=== PATIENT | female | born 2000 | race Caucasian/White ===

== ENCOUNTER 2024-08-05 11:03 | Emergency (ER) | payer MEDICAID, SELFPAY ==
[2024-08-05 11:22] VITALS: BP 105/59; PULSE 106; RESP 18; TEMP 37; O2SAT 98; BMI 27.1
--- NOTE | 2024-08-05 11:24 | ED_ITS ---
HPI - General Adult General Chief complaint: Upper Respiratory Symptoms Stated complaint: Sore throat, headache Time Seen by Provider: 08/05/24 13:47 Source: patient Mode of arrival: ambulatory Limitations: no limitations History of Present Illness ED Provider: MARY JO FLEMING PA-C HPI narrative: 24 year old female with no significant pmhx presents to the ED today for evaluation of sore throat, headache, and subjective fevers x24 hours. Reports her son at home recently had strep throat. No other sick contacts. Denies dizziness, vision changes, dysphagia, neck pain, chest pain, SOB. Vaccinations UTD. Related Data Previous Rx's ?Medication ?Instructions ?Recorded benzocaine 15 mg-menthol 2.6 mg 1 nancy mucous membrane Q2-4H PRN 08/05/24 lozenges (Cepacol Sore Throat sore throat #16 ea (benzocaine-menthol)) penicillin V potassium 500 mg 500 mg PO BID 10 days #20 tabs 08/05/24 tablet prednisone 20 mg tablet 40 mg (2 x 20 mg) PO DAILY 5 days 08/05/24 #10 tabs Allergies Allergy/AdvReac Type Severity Reaction Status Date / Time No Known Allergies Allergy Verified 08/05/24 11:25 Review of Systems Review of Systems: Constitutional: No fever, chills, fatigue, night sweats, weight changes ENT/Mouth: No ear pain, hearing loss, nasal congestion, sinus pain, rhinorrhea, +sore throat, +odynophagia, No dysphagia Eyes: No eye pain, swelling, redness, vision changes, discharge Cardio: No chest pain, palpitations, LOPEZ, orthopnea, peripheral edema Pulm: No SOB, cough, sputum, wheezing, dyspnea, hemoptysis GI: No nausea, vomiting, hematemesis, abdominal pain, diarrhea, constipation, hematochezia, melena : No irregular bleeding, dysuria, frequency, urgency, hesitancy, hematuria, flank pain MSK: No back pain, neck pain, joint pain, myalgias Skin: No lesions, rashes Neuro: No weakness, numbness, paresthesias, LOC, dizziness, headache All other systems reviewed and are negative. [facility] Past Medical History Attestation statement: The following information was validated with the patient. Source: old records reviewed and nursing notes reviewed Social History Social History Advance Directives: No Advance Directives Information Provided: Yes Physical Exam ED Vital Signs: Vital Signs - 24 hr 08/05/24 11:22 Temperature 98.6 F Pulse Rate 106 H Respiratory Rate 18 Blood Pressure 105/59 L Pulse Oximetry 98 Oxygen Delivery Method Room Air BMI result Body Mass Index 27.1 vital signs stable General: Well appearing, in no acute distress. Skin: Warm, dry, intact. No rashes or lesions. Head: Normocephalic, atraumatic. EENT: Hearing is intact b/l. Conjunctiva clear. PERRLA. EOM intact. Moist mucous membranes.? Posterior oropharynx erythematous with tonsillar swelling. Bilateral tonsillar exudates. Uvula midline. Controlling secretions and complete sentences. Neck: Supple without LAD. Cardiac: Chest wall symmetric. RRR Lungs: Airway patent. Normal respiratory effort without accessory muscle use. CTA bilaterally Back: No midline spinous or paraspinal tenderness. No step off deformity. Ext: Upper and lower extremities atraumatic, without tenderness, deformity, swelling or erythema. Full ROM throughout. Neuro: AOx3. Normal speech. Ambulating with steady gait. Psych: Appropriate mood and affect. Responds appropriately to questions. Course Course Course Narrative: This is a rapid medical exam performed by Trav Acosta NP: Additional HPI, ROS, PE not included below will be deferred to primary provider. Patient is a 24-year-old female presenting with complaint of sore throat, headache, subjective fever. Son sick with similar symptoms. Plan: strep and viral swabs Reevaluation(s) Reevaluation #1: 0290 -- patient tested positive for strep throat. Negative for COVID, flu, RSV. Penicillin sent to pharmacy for treatment. I have also send Cepacol throat lozenges and prednisone for swelling. Patient has remained stable throughout ED visit today. Discussed worrisome signs and symptoms and when to return to the ED. All questions answered at this time. Patient is agreeable with disposition and stable for discharge. Medical Decision Making Medical Decision Making MDM Narrative: 24 year old female with no significant pmhx presents to the ED today for evaluation of sore throat, headache, and subjective fevers x24 hours. Patient tachycardic to 106. Afebrile. She is nontoxic appearing in no acute distress. Posterior oropharynx erythematous with tonsillar swelling. Bilateral tonsillar exudates. Uvula midline. Controlling secretions and complete sentences. airway patent, lungs clear. no LAD. Differential diagnosis includes strep throat, viral syndrome. 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 Plan for viral and strep swabs, re-evaluation. Differential Diagnosis Differential Diagnoses: The differential diagnosis associated with the presentation includes as above. Admission/Observation Not indicated Lab Data MDM Lab Attestation statement: I reviewed the patient's lab results. as above Labs: Lab Results 08/05/24 Range/Units 12:11 Influenza Type A (PCR) NEGATIVE (Negative) Influenza Type B (PCR) NEGATIVE (Negative) RSV RNA Qual (PCR) NEGATIVE (Negative) SARS-CoV-2 RNA (RT-PCR) NEGATIVE (Negative) S. pyogenes GrpA CASH Positive A (Negative) External Record Review External record reviewed: Inpatient record Prescription Management I considered prescription management with: Pain Medication and Antibiotic (Penicillin) Social Determinants Patient?s care significantly limited by Social Determinants of Health including: Other Social Determinant of Health Critical Care Time Critical Care Time Critical Care Time: No Discharge Plan Discharge Clinical Impression: Acute streptococcal pharyngitis Patient Disposition: Home, Self-Care Instructions: Strep Throat (ED) Additional Instructions: You were seen in the ED today for evaluation of sore throat. You tested positive for strep throat. Penicillin is an antibiotic that has been sent to your pharmacy. Take this twice daily for the next 10 days to treat strep throat. Do not stop taking these antibiotics early or miss any doses as this may cause infection to return or worsen. Cepacol throat lozenges have been sent to your pharmacy to help with throat pain. Prednisone is a steroid that has been sent to your pharmacy for you to take over the next 5 days. You may also purchase [id number] chloraseptic spray to numb your throat. Take Tylenol and ibuprofen as needed for body aches or fevers. Make sure to change your toothbrush as this contains bacteria. Strep throat is contagious. If anyone else in your household is exhibiting symptoms, please advise them to come to the ED, urgent care, or to see their primary care provider. Follow up with your primary care provider this week. Return to the Emergency Department if you experience worsening or uncontrolled pain, tongue swelling, difficulty swallowing, change in your voice, difficulty breathing, fevers 100.4?F or greater, recurrent vomiting, development of a rash, or any other concerning symptoms. In the case of emergency, call 911.? Prescriptions: New penicillin V potassium 500 mg tablet 500 mg PO BID 10 Days Qty: 20 0RF prednisone 20 mg tablet 40 mg PO DAILY 5 Days Qty: 10 0RF Cepacol Sore Throat (warner-men) 15-2.6 mg lozenge 1 nancy mucous membrane Q2-4H PRN (Reason: sore throat) Qty: 16 0RF Interventions: ED Discharge Assessment Last Done: 08/05/24 14:20 Discharge Date/Time: 08/05/24 14:21 Print Language: Belarusian
[2024-08-05 12:36] LABS: IDNOW Serial# 08D9AD1C; Strep A Nucleic Acid Positive (Negative)
[2024-08-05 13:13] LABS: Influenza A PCR NEGATIVE (Negative); Influenza B PCR NEGATIVE (Negative); Resp Syncy Virus RNA Qual PCR NEGATIVE (Negative); SARS COV2 PCR INHOUSE NEGATIVE (Negative)
[2024-08-05 14:20] VITALS: BP 105/59; PULSE 106; RESP 18; TEMP 37; O2SAT 98
== END 2024-08-05 14:21 | disposition home or self-care (01) ==
PROVIDERS: Registered Nurse Emergency; Emergency Provider Emergency Medicine
DX: J02.0 Streptococcal pharyngitis (principal); R51.9 Headache, unspecified; R50.9 Fever, unspecified; Z03.818 Encounter for observation for suspected exposure to other biological agents ruled out
CPT/HCPCS: 0241U; 87651; 99282; 99283

== ENCOUNTER 2024-11-24 09:16 | Emergency (ER) | payer MEDICAID, SELFPAY ==
--- NOTE | ~2024-11-24 | XR_ITS ---
EXAMINATION: XR CHEST 2 VIEWS HISTORY: dyspnea COMPARISON: There are no prior studies for comparison. FINDINGS: PA and lateral views of the chest are submitted. There is a small patchy opacity in the right middle lobe, consistent with pneumonia. The left lung is clear. There is no pleural effusion, pneumothorax, or pulmonary vascular congestion. The heart is normal in size. The bones are intact. XR/XR chest 2V IMPRESSION: Right middle lobe pneumonia. Electronically signed by: Bassem Lim MD 11/24/2024 10:46 AM EDT
[2024-11-24 09:19] VITALS: BP 101/65; PULSE 112; RESP 16; TEMP 37.7; O2SAT 97; BMI 26.5
[2024-11-24 09:58] LABS: IDNOW Serial# 58CA691E
[2024-11-24 09:59] LABS: Strep A Nucleic Acid Positive (Negative)
[2024-11-24 10:24] LABS: Influenza A PCR NEGATIVE (Negative); Influenza B PCR NEGATIVE (Negative); Resp Syncy Virus RNA Qual PCR NEGATIVE (Negative); SARS COV2 PCR INHOUSE NEGATIVE (Negative)
--- NOTE | 2024-11-24 10:34 | ECG_ITS ---
Test Reason : dyspnea Blood Pressure : */* mmHG Vent. Rate : 83 BPM Atrial Rate : 83 BPM P-R Int : 168 ms QRS Dur : 86 ms QT Int : 352 ms P-R-T Axes : 35 -7 9 degrees QTcB Int : 413 ms Normal sinus rhythm Normal ECG No previous ECGs available Referred By: Anny Copeland Electronically Signed By: Cordell Castañeda
--- NOTE | 2024-11-24 10:38 | ED_ITS ---
HPI - URI/Sore Throat General Chief Complaint: Upper Respiratory Symptoms Stated Complaint: strep Time Seen by Provider: 11/24/24 10:29 Source: patient and old records reviewed Mode of arrival: ambulatory Limitations: no limitations History of Present Illness ED Provider: MAMTA KELLY Narrative: 24 yo female with no sig PMH who has been sick for two days after exposure from son who has strep. She notes sore throat, headaches, chills. Starting yesterday she also c/o feeling like her chest was tight. She feels LOPEZ and it feels tighter when she takes a deep breath. She is not a smoker and has never had asthma. She denies travel, OCP use. She has never had this before. She has not taken any OTC medications for it yet. MD elicited complaint: sore throat and other (LOPEZ) Onset (ago): day(s) (2) Consistency: intermittent Severity: moderate Description of mucous: clear Exacerbating factors: swallowing and other (exertion) Relieving factors: nothing Context: sick contacts Associated symptoms: chills, voice changes, headache, sore throat, chest pain and shortness of breath Treatments prior to arrival: none Related Data Previous Rx's ?Medication ?Instructions ?Recorded benzocaine 15 mg-menthol 2.6 mg 1 nancy mucous membrane Q2-4H PRN 08/05/24 lozenges (Cepacol Sore Throat sore throat #16 ea (benzocaine-menthol)) penicillin V potassium 500 mg 500 mg PO BID 10 days #20 tabs 08/05/24 tablet prednisone 20 mg tablet 40 mg (2 x 20 mg) PO DAILY 5 days 08/05/24 #10 tabs amoxicillin 875 mg-potassium 1 tab PO BID 10 days #20 tabs 11/24/24 clavulanate 125 mg tablet azithromycin 250 mg tablet See Rx Instructions PO .COMPLEX #6 11/24/24 tabs ondansetron 4 mg disintegrating 4 mg PO Q8H PRN nausea and 11/24/24 tablet vomiting #20 tabs Allergies Allergy/AdvReac Type Severity Reaction Status Date / Time No Known Allergies Allergy Verified 11/24/24 09:22 Review of Systems 2 Review of Systems: Constitutional :pos Fever, pos Chills ENT/Mouth : pos sore throat, No Rhinorrhea Eyes: No Eye Pain, No Swelling Cardiovascular : pos Chest Pain, pos SOB, pos Dyspnea on Exertion, No Orthopnea, No Edema, No Palpitations Respiratory : No Cough, No Sputum Gastrointestinal : no Nausea, No Vomiting, No Diarrhea, No abdominal Pain, No Hematochezia, No Melena Genitourinary : No Dysuria, No Urinary Frequency Musculoskeletal : No joint pain, No Myalgias, No Joint Swelling Skin : No Skin Lesions, No rash All other systems reviewed and are negative [facility] Past Medical History Attestation statement: The following information was validated with the patient. Source: old records reviewed Medical History (Updated 11/24/24 @ 12:10 by Anny Copeland DO) No pertinent past medical history Social History Social History (Updated 11/24/24 @ 11:09 by Anny Copeland DO) Patient Tobacco Use Status: Never used Tobacco Smoked in Last 30 Days: No Advance Directives: No Advance Directives Information Provided: Yes Patient : No Physical Exam 2 Vital Signs: Vital Signs: Last Vital Signs Temp 99.8 F 11/24/24 09:19 Pulse 112 H 11/24/24 09:19 Resp 16 11/24/24 09:19 BP 101/65 11/24/24 09:19 Pulse Ox 97 11/24/24 09:19 O2 Del Method Room Air 11/24/24 09:19 BMI result Body Mass Index 26.5 Appearance: Alert. Oriented X3. No acute distress. Eyes: Pupils equal, round and reactive to light. ENT: Pharynx moderate swelling uvula is midline, exudates noted, voice normal, no drooling, no submandibular swelling or neck mass, erythema moderate on tonsils Neck: Normal inspection. Neck supple. CVS: Normal heart rate and rhythm. Pulses normal. Respiratory: No respiratory distress. Breath sounds normal. Abdomen: Soft and nontender. Skin: Skin warm and dry. Normal skin color. Normal skin turgor. Extremities: No lower extremity edema. No calf ttp Neuro: Oriented X 3. No motor deficit. No sensory deficit. CN2-12 intact Medications Administered Discontinued Medications Generic Name Dose Route Start Last Admin Trade Name Freq PRN Reason Stop Dose Admin Amoxicillin 500 mg 11/24/24 10:34 11/24/24 10:56 Amoxicillin 500 Mg Capsule PO 11/24/24 10:35 500 mg ONCE ONE Administration Dexamethasone Sodium Phosphate 8 mg 11/24/24 10:34 11/24/24 10:56 Dexamethasone Sod Phosphate 4 Mg/Ml Vial PO 11/24/24 10:35 8 mg ONCE ONE Administration Ibuprofen 600 mg 11/24/24 10:34 11/24/24 10:56 Ibuprofen Oral Susp 200 Mg/10 Ml Oral.Susp PO 11/24/24 10:35 600 mg ONCE ONE Administration Medical Decision Making Medical Decision Making 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 She has no resp distress but reports she has LOPEZ and chest tightness she is not wheezing on exam at this time given the tachycardia and clear lungs I am going to obtain labs, EKG, troponin, CXR. I did order ddimer for low probability PE. Will also obtain bedside ECHO for effusion. She was only sick for 24 hours then developed LOPEZ/chest tightness - other than her son being ill she has no other risk factors. Differential Diagnosis Differential Diagnoses: The differential diagnosis associated with the presentation includes URI, viral syndrome, pneumonia, VTE low probability, effusion Admission/Observation Consideration of admission/observation: Escalation of care including admission/observation considered negative ECHO, trop, EKG, ddimer under threshold Lab Data [facility] Lab Attestation statement: I reviewed the patient's lab results. 11/24/24 11:08 11/24/24 11:08 Labs: Lab Results 11/24/24 11/24/24 Range/Units 09:39 11:08 WBC 16.0 H (4.8-10.8) X10*3/uL RBC 4.19 L (4.20-5.50) X10*6/uL Hgb 11.0 L (12.0-16.0) g/dl Hct 34.6 L (37.0-47.0) % MCV 82.6 (80.0-98.0) fL MCH 26.3 L (27.0-33.0) pg MCHC 31.8 (31.0-35.0) g/dl RDW 14.4 (11.0-16.0) % Plt Count 226 (160-400) X10*3/uL MPV 11.4 (9.4-12.3) fL Immature Gran % (Auto) 0.4 (0.0-0.4) % Neut % (Auto) 89.2 H (45-73) % Lymph % (Auto) 4.1 L (20-40) % Sawyer % (Auto) 5.1 (2-11) % Eos % (Auto) 0.9 (0-4) % Baso % (Auto) 0.3 (0-2) % Lymph # (Auto) 0.7 L (1.2-4.9) X10*3/uL Sawyer # (Auto) 0.8 (0.1-1.2) X10*3/uL Eos # (Auto) 0.1 (0.0-0.4) X10*3/uL Baso # (Auto) 0.1 (0.0-0.2) X10*3/uL Abs Immat Gran (auto) 0.06 H (0.00-0.03) X10*3/uL Absolute Neuts (auto) 14.3 H (2.0-8.3) x10*3/uL Absolute Nucleated RBC 0.000 (0.0-0.012) X10*3/uL Nucleated RBC % (auto) 0.0 (0.0-0.2) /100WBC D-Dimer High Sensitivty 228 NG/ML Sodium 140 (135-145) mmol/L Potassium 3.6 (3.3-5.1) mmol/L Chloride 108 (96-108) mmol/L Carbon Dioxide 25 (22-29) mmol/L Anion Gap 11 L (12-20) BUN 11 (9-16) mg/dL Creatinine 0.74 (0.5-1.4) mg/dL Estim Creat Clear Calc 118.8 Estimated GFR > 60 Random Glucose 105 (60-115) mg/dL Calcium 9.0 (8.4-10.2) mg/dL Troponin I High Sens < 2.7 (<3.5-17.0) ng/L Beta HCG, Quant < 2 mIU/mL Influenza Type A (PCR) NEGATIVE (Negative) Influenza Type B (PCR) NEGATIVE (Negative) RSV RNA Qual (PCR) NEGATIVE (Negative) SARS-CoV-2 RNA (RT-PCR) NEGATIVE (Negative) S. pyogenes GrpA CASH Positive A (Negative) Independent Interpretation I performed an independent interpretation of an: EKG and Plain X-Ray (opacity RML) Interpretation: Rate: 83 Rhythm: NSR [place]: normal Normal P waves. Normal LENNY. Normal QRS complex. ST T wave : inverted t waves V1, no BEATRIZ qTC: 413 prior studies: no acute ischemia The study has been interpreted contemporaneously by me. . Radiology Impression Discussion of test interpretation with radiology: I have reviewed the radiologist's reading. External Record Review External record reviewed: Outpatient record Prescription Management I considered prescription management with: Antibiotic Procedures Procedure Narrative Procedure Narrative: limited bedside ECHO apical, parasternal, subxiphoid no effusion present Discharge Plan Discharge Clinical Impression: Strep throat CAP (community acquired pneumonia) Qualifiers: Laterality: right Lung location: middle lobe of lung Qualified Code(s): J18.9 - Pneumonia, unspecified organism Patient Disposition: Home, Self-Care Instructions: Strep Throat (ED), Community Acquired Pneumonia (ED) Additional Instructions: labs reassuring cardiac work up reassuring negative blood clot test chest xray right middle lobe pneumonia finish and take all antibiotics throw away toothbrush after 24 hours return for worsening symptoms, pain, fevers, unable to eat or drink or any other concerns rest and stay hydrated On amoxicillin-clavulanate, softer bowel movements are to be expected. Call your provider if you move your bowels more than 4 times a day, your bowel movements are almost all liquid, or you get a rash.? On azithromycin, call your provider if you develop new ringing in your ears, new problems hearing, dizziness, palpitations, abdominal pain, nausea, or diarrhea. Prescriptions: New azithromycin 250 mg tablet See Rx Instructions .ROUTE .COMPLEX Qty: 6 0RF Rx Instructions: For 250 mg dose pack: take 500 mg today (day 1), then 250 mg for 4 days (days 2-5) ondansetron 4 mg tablet,disintegrating 4 mg PO Q8H PRN (Reason: nausea and vomiting) Qty: 20 0RF amoxicillin-pot clavulanate 875-125 mg tablet 1 tab PO BID 10 Days Qty: 20 0RF No Action penicillin V potassium 500 mg tablet 500 mg PO BID 10 Days Qty: 20 0RF prednisone 20 mg tablet 40 mg PO DAILY 5 Days Qty: 10 0RF Cepacol Sore Throat (warner-men) 15-2.6 mg lozenge 1 nancy mucous membrane Q2-4H PRN (Reason: sore throat) Qty: 16 0RF Stand Alone Forms: Work/School Release Print Language: Wallisian
[2024-11-24] MEDS: dexAMETHasone sod phosphate 4 MG/ML VIAL 8 MG PO (10:56)
[2024-11-24] MEDS: Ibuprofen Oral Susp 200 MG/10 ML ORAL.SUSP 600 MG PO (10:56)
[2024-11-24] MEDS: Amoxicillin 500 MG CAPSULE PO (10:56)
[2024-11-24 11:13] LABS: MANUAL DIFF FLAG NO
[2024-11-24 11:14] LABS: Basophils Absolute Auto 0.1 X10*3/uL (0.0-0.2); Basophils Percent Auto 0.3 % (0-2); Eosinophils Absolute Auto 0.1 X10*3/uL (0.0-0.4); Eosinophils Percent Auto 0.9 % (0-4); Hematocrit 34.6 % (37.0-47.0); Imm Gran Abs Auto 0.06 X10*3/uL (0.00-0.03); Imm Gran Pct Auto 0.4 % (0.0-0.4); Lymphocytes Absolute Auto 0.7 X10*3/uL (1.2-4.9); Lymphocytes Percent Auto 4.1 % (20-40); Mean Corpuscular HGB Conc 31.8 g/dl (31.0-35.0); Mean Corpuscular Hemoglobin 26.3 pg (27.0-33.0); Mean Corpuscular Volume 82.6 fL (80.0-98.0); Mean Platelet Volume 11.4 fL (9.4-12.3); Monocytes Absolute Auto 0.8 X10*3/uL (0.1-1.2); Monocytes Percent Auto 5.1 % (2-11); Neutrophils Absolute Auto 14.3 x10*3/uL (2.0-8.3); Neutrophils Percent Auto 89.2 % (45-73); Platelet Count 226 X10*3/uL (160-400); Red Blood Count 4.19 X10*6/uL (4.20-5.50); Red Cell Distribution Width 14.4 % (11.0-16.0)
[2024-11-24 11:28] LABS: D Dimer High Sensitivity 228 NG/ML
[2024-11-24 11:45] LABS: Anion Gap 11 (12-20); Blood Urea Nitrogen 11 mg/dL (9-16); Carbon Dioxide 25 mmol/L (22-29); Chloride 108 mmol/L (96-108); Creatinine Clr Calc Pharmacy 118.8; Estimated Glomerular Filt Rate > 60; Glucose Random 105 mg/dL (60-115); Potassium 3.6 mmol/L (3.3-5.1); Sodium 140 mmol/L (135-145)
[2024-11-24 11:49] LABS: HCG Quantitative < 2 mIU/mL; Troponin-I High Sensitivity < 2.7 ng/L (<3.5-17.0)
[2024-11-24 12:35] VITALS: BP 101/65; PULSE 112; RESP 16; TEMP 37.7; O2SAT 97
== END 2024-11-24 12:35 | disposition home or self-care (01) ==
PROVIDERS: Emergency Provider Emergency Medicine
DX: J02.0 Streptococcal pharyngitis (principal); J18.9 Pneumonia, unspecified organism; R07.89 Other chest pain; R06.02 Shortness of breath; Z03.818 Encounter for observation for suspected exposure to other biological agents ruled out
CPT/HCPCS: 0241U; 36415; 71046; 80048; 84484; 84702; 85025; 85379; 87651; 93005; 99283; 99285; J1100

== ENCOUNTER → 2024-11-24 10:34 | Outpatient (BNV) | payer MEDICAID, SELFPAY | PROVIDERS: Emergency Provider Emergency Medicine; Visit Provider Internal Medicine Cardiovascular Disease | DX: R06.00 Dyspnea, unspecified (principal) | CPT/HCPCS: 93010 ==

== ENCOUNTER → 2024-11-24 10:34 | Outpatient (BNV) | payer MEDICAID, SELFPAY | PROVIDERS: Emergency Provider Emergency Medicine; Visit Provider Radiology Diagnostic Radiology | DX: J18.9 Pneumonia, unspecified organism (principal) | CPT/HCPCS: 71046 ==

== ENCOUNTER 2025-08-18 09:44 | Outpatient (REF) | payer MEDICAID, SELFPAY ==
[2025-08-18 11:03] LABS: MANUAL DIFF FLAG NO
[2025-08-18 11:19] LABS: Hematocrit 37.5 % (37.0-47.0); Hemoglobin 11.5 g/dl (12.0-16.0); Imm Gran Abs Auto 0.02 X10*3/uL (0.00-0.03); Imm Gran Pct Auto 0.2 % (0.0-0.4); Lymphocytes Absolute Auto 1.5 X10*3/uL (1.2-4.9); Mean Corpuscular HGB Conc 30.7 g/dl (31.0-35.0); Mean Corpuscular Hemoglobin 27.0 pg (27.0-33.0); Mean Corpuscular Volume 88.0 fL (80.0-98.0); NRBC Abs Auto 0.000 X10*3/uL (0.0-0.012); NRBC Pct Auto 0.0 /100WBC (0.0-0.2); Platelet Count 255 X10*3/uL (160-400); Red Blood Count 4.26 X10*6/uL (4.20-5.50); White Blood Count 8.3 X10*3/uL (4.8-10.8)
[2025-08-18 11:51] LABS: Alanine Aminotransferase 12 U/L (0-31); Albumin Level 3.9 g/dL (3.5-5.0); Alkaline Phosphatase 70 U/L (39-117); Anion Gap 9 (12-20); Aspartate Amino Transferase 23 U/L (5-31); Blood Urea Nitrogen 9 mg/dL (9-16); Calcium 8.9 mg/dL (8.4-10.2); Carbon Dioxide 27 mmol/L (22-29); Chloride 109 mmol/L (96-108); Estimated Glomerular Filt Rate > 60; Iron 94 mcg/dL (30-160); Percent Iron Saturation 31 % (15-50); Potassium 4.7 mmol/L (3.3-5.1); Sodium 140 mmol/L (135-145); Total Iron Binding Capacity 308 mcg/dL (228-428); Total Protein 7.3 g/dL (6.5-8.0); Unsaturated Iron Binding 214 ug/dL
[2025-08-18 12:19] LABS: Ferritin 15 ng/mL (10-122)
[2025-08-18 12:20] LABS: HBS Num1 2.35 mIU/mL (0-7.99); HBc Num1 0.08 S/CO (0.00-0.79); HBsAGNum1 0.37 S/CO (0.00-0.99); HIV Num 1 0.06 S/CO (0.00-0.99); Hepatitis B Surface Antigen Negative (Negative); ~HepC Num1 0.13 S/CO (0.00-0.79); ~Hepatitis B Surface Antibody NONREACTIVE (Nonreactive); ~Hepatitis C Antibody Nonreactive (Nonreactive)
[2025-08-18 12:29] LABS: Folate 10.7 ng/mL (> or = 4.0); Vitamin B12 291 pg/mL (200-900)
== END 2025-08-18 09:45 | disposition home or self-care (01) ==
LOC: HO.HHCL 09:44
PROVIDERS: PCP Registered Nurse; Visit Provider Emergency Medicine
DX: Z11.3 Encounter for screening for infections with a predominantly sexual mode of transmission (principal); Z11.59 Encounter for screening for other viral diseases; Z11.4 Encounter for screening for human immunodeficiency virus [HIV]; R10.13 Epigastric pain; R11.2 Nausea with vomiting, unspecified
CPT/HCPCS: 36415; 80053; 82607; 82728; 82746; 83036; 83540; 84443; 85025; 86592; 86704; 86706; 86803; 87340; 87389